=== PATIENT | male | born 2000 | race Caucasian/White ===

== ENCOUNTER 2022-03-30 23:31 | Emergency (ER) | payer MEDICAID ==
[2022-03-31] MEDS ORDERED: Alum Hydro/Mag Hydro/Simeth XS 15 ML, Lidocaine 2% 5 ML PO ONE ×2 (01:13)
[2022-03-31] MEDS ORDERED: Ketorolac 30 MG/ML SDV IM ONE (01:14)
[2022-03-31 01:58] LABS: CARBON DIOXIDE,CO2 26.7 mmol/L (21.0-32.0); POTASSIUM,K 3.9 mmol/L (3.5-5.1)
== END 2022-03-31 02:23 | disposition home or self-care (01) ==
LOC: MW.ED 23:31
DX: K29.70 Gastritis, unspecified, without bleeding (principal); Z79.899 Other long term (current) drug therapy
CPT/HCPCS: 36415; 80053; 83690; 85025; 96372; 99284; A9270; J1885